=== PATIENT | female | born 2000 | race Two or more races ===

== ENCOUNTER 2022-03-25 00:26 | Emergency (ER) | payer OTHER, MEDICAID ==
[~2022-03-25] VITALS: Ht 170.2 cm; Wt 70.3 kg
[2022-03-25 00:54] LABS: BASOPHILS % (AUTO) 0.5 % (0.0-2.0); EOSINOPHILS % (AUTO) 1.1 % (0.0-6.0); HEMATOCRIT 37 % (33-45); LYMPHOCYTES # (AUTO) 1.6 K/uL (0.8-4.8); LYMPHOCYTES % (AUTO) 44.6 % (20.0-44.0); MEAN CORPUSCULAR HGB CONC 32 g/dl (31.0-36.0); MEAN CORPUSCULAR VOLUME 81 fL (82-100); MONOCYTES # (AUTO) 0.4 K/uL (0.1-1.30); NEUTROPHILS # (AUTO) 1.5 K/uL (1.8-8.9); NEUTROPHILS % (AUTO) 42.8 % (43.0-81.0); PLATELET COUNT (AUTO) 269 K/uL (150-450); RED BLOOD CELL COUNT(AUTO) 4.58 MIL/uL (4.0-5.2); WHITE BLOOD COUNT (AUTO) 3.6 K/uL (4.3-11.0)
[2022-03-25 01:22] LABS: CALCIUM, SERUM 8.9 mg/dL (8.5-10.1); CARBON DIOXIDE 30 mmol/L (21-32); CHLORIDE 107 mmol/L (98-107); CREATININE 0.9 mg/dL (0.6-1.3); GLUCOSE 98 mg/dL (74-106); POTASSIUM 4.8 mmol/L (3.5-5.1); SODIUM SERUM 144 mmol/L (136-145); UREA NITROGEN, BLOOD 7 mg/dL (7-18)
[2022-03-25 01:29] LABS: ALANINE AMINOTRANSFERASE 25 U/L (12-78); ALCOHOL, BLOOD 200 mg/dL (0-0); ALKALINE PHOSPHATASE 56 U/L (46-116); ASPARTATE AMINOTRANSFERASE 16 U/L (15-37); BILIRUBIN,DIRECT 0.1 mg/dL (0.0-0.2); BILIRUBIN,TOTAL 0.4 mg/dL (0.2-1.0); TOTAL PROTEIN, SERUM 7.6 g/dL (6.4-8.2)
[2022-03-25 01:30] LABS: ACETAMINOPHEN < 2 ug/ml (10-30)
--- NOTE | 2022-03-25 01:35 | NUR ---
[id number] & [employer]. INTENTIONAL INGESTION OF 5 2MG XANAX AND 4 SHOT WHISKEY. PLACED ON 5150 HOLD FOR DTS. ON ASSESSMENT PT LETHARGIC, EASILY AROUSES TO STIMULI AND ANSWERS QUESTIONS APPROPRIATELY. PT PLACED ON SUPERVISOR SCREEN MAKING AND V/S WNL
[2022-03-25 02:13] LABS: BILIRUBIN,URINE NEGATIVE (NEGATIVE); COLOR,URINE YELLOW (YELLOW); LEUKOCYTE ESTERASE ,URINE NEGATIVE (NEGATIVE); NITRITE, URINE NEGATIVE (NEGATIVE); PROTEIN,URINE NEGATIVE (NEGATIVE); UGLUCOSE NEGATIVE (NEGATIVE); UROBILINOGEN,URINE 0.2 EU/dL (0.2)
--- NOTE | 2022-03-25 02:42 | NUR ---
FEI JUSTIN (MOTHER) - [phone]
[2022-03-25 02:46] LABS: BACTERIA,URINE Few /HPF (None Seen); SQUAMOUS EPITHELIAL CELL,UR Few /HPF (None Seen); WBC,URINE 0-2 /HPF (0-3)
--- NOTE | 2022-03-25 04:18 | NUR ---
PT SLEEPING COMFORTABLY BREATHING EVEN AND UNLABORED. REMAINS ON MONITOR AND V/S WNL. CALL LIGHT WITHIN REACH.
--- NOTE | 2022-03-25 10:09 | NUR ---
CRISIS AT BEDSIDE
[2022-03-25] MEDS ORDERED: IV NS 0.9% 1,000 ML IV ONE (11:00)
[2022-03-25] MEDS ORDERED: KETOROLAC TROMETHAMINE 15 MG/ML VIAL ONE (11:55)
[2022-03-25] MEDS ORDERED: ONDANSETRON HCL/PF 4 MG/2 ML VIAL ONE (11:55)
[2022-03-25] MEDS ORDERED: KETOROLAC TROMETHAMINE INJ 30 MG/ML VIAL IV ONE (12:00)
[2022-03-25] MEDS ORDERED: ONDANSETRON HCL/PF 4 MG/2 ML VIAL IV ONE (12:00)
[2022-03-25] MEDS ORDERED: IBUP-1955 PO (12:06)
[2022-03-25] MEDS ORDERED: ONDA4TAB5 PO (12:06)
--- NOTE | 2022-03-25 13:09 | NUR ---
MEDICALLY AND PSYCH CLEARED. DISCHARGE TO MOTHER IN STABLE CONDITION.
[2022-03-25 13:11] VITALS: BP 115/62
== END 2022-03-25 13:12 | disposition home or self-care (01) ==
LOC: ER 00:28
DX: T42.4X2A Poisoning by benzodiazepines, intentional self-harm, initial encounter (principal); T51.0X2A Toxic effect of ethanol, intentional self-harm, initial encounter; Y92.039 Unspecified place in apartment as the place of occurrence of the external cause; Z20.822 Contact with and (suspected) exposure to COVID-19; F19.10 Other psychoactive substance abuse, uncomplicated; D72.819 Decreased white blood cell count, unspecified; Z91.51 Personal history of suicidal behavior
CPT/HCPCS: 99285; 96374; 96361; 96375; 85025; 80048; 80076; 81001; 36415; 87426; 80143; 80320 ×2; 80307; J2405; J7030; J1885; C9803; G0480